=== PATIENT | female | born 1960 ===

== ENCOUNTER 2016-06-05 06:46 | Day surgery (SDC) | payer SELFPAY ==
[2016-06-05 07:36] VITALS: BMI 32.3
[2016-06-05 07:49] VITALS: TEMP 97.8
[2016-06-05] MEDS ORDERED: Lactated Ringer's 500 ML IV ONE (08:00)
[2016-06-05] MEDS ORDERED: Propofol 10 mg/ml Inj (20 ML) ONE ×2 (08:03→08:05)
[2016-06-05] MEDS ORDERED: Lidocaine Hydrochloride 5 ML INJ ONE (08:03)
[2016-06-05] MEDS ORDERED: Simethicone 40 mg/0.6 ml Liquid (30 ml) ONE (08:12)
[2016-06-05 08:54] VITALS: O2SAT 100
[2016-06-05 09:21] VITALS: BP 118/59; PULSE 66; RESP 16
== END 2016-06-05 10:05 | disposition home or self-care (01) ==
LOC: C.ENDO 06:46
PROVIDERS: ATTEND Internal Medicine Gastroenterology
DX: D12.4 Benign neoplasm of descending colon (principal); K63.89 Other specified diseases of intestine; K64.8 Other hemorrhoids
CPT/HCPCS: 45385; 88305; J2704; J7120

== ENCOUNTER 2017-07-18 12:32 | Emergency (ER) | payer OTHER ==
[2017-07-18 12:33] VITALS: BMI 38.4
[2017-07-18 12:41] VITALS: BP 147/85; PULSE 83; RESP 16; TEMP 98.3; O2SAT 98
--- NOTE | 2017-07-18 12:45 | C.PDOC ---
History Of Present Illness Patient reports left leg pain for the past two weeks. States that she fell three months ago however lately her left knee has been hurting more. She is able to bear weight but has pain when walking. Denies any new injury. No other symptoms. Time Seen by Provider: 07/18/17 12:39 Chief Complaint (Nursing): Lower Extremity Problem/Injury History Per: Patient History/Exam Limitations: no limitations Onset/Duration Of Symptoms: Other (Weeks) Current Symptoms Are (Timing): Still Present - Knee Description Of Injury: Other (States that she fell months ago) Past Medical History Vital Signs: Last Vital Signs Temp 98.3 F 07/18/17 12:38 Pulse 83 07/18/17 12:38 Resp 16 07/18/17 12:38 BP 147/85 07/18/17 12:38 Pulse Ox 98 07/18/17 13:23 - Medical History PMH: Colonic Polyps, HTN, Hypercholesterolemia, Hypothyroidism Denies: Chronic Kidney Disease Family History: States: Unknown Family Hx - Social History Hx Alcohol Use: No Hx Substance Use: No Review Of Systems Except As Marked, All Systems Reviewed And Found Negative. Constitutional: Negative for: Fever Cardiovascular: Negative for: Chest Pain Respiratory: Negative for: Cough, Shortness of Breath Gastrointestinal: Negative for: Nausea, Vomiting, Abdominal Pain Musculoskeletal: Positive for: Leg Pain Skin: Negative for: Rash, Bruising Neurological: Negative for: Weakness, Numbness Physical Exam - Physical Exam Appears: Well, Non-toxic, No Acute Distress Skin: Normal Color Head: Atraumatic Eye(s): bilateral: Normal Inspection Nose: Normal Oral Mucosa: Moist Cardiovascular: Rhythm Regular Respiratory: Normal Breath Sounds Gastrointestinal/Abdominal: Normal Exam, Soft Extremity: Normal ROM, Tenderness (L knee), No Pedal Edema, No Calf Tenderness, Capillary Refill (<2 seconds), No Deformity, No Swelling, Other (L knee no effusion, no swelling, no erythema, with minimal tenderness to anterior and posterior aspects. Negative anterior drawer sign.) Pulses: Left Dorsalis Pedis: Normal, Right Dorsalis Pedis: Normal Neurological/Psych: Oriented x3 Gait: Steady ED Course And Treatment O2 Sat by Pulse Oximetry: 98 - Other Rad L knee X-Ray: Read By Radiologist Interpretation: Accession No. : [id number]. Patient Name / ID : YING HSU / [id number]. Exam Date : 07/18/2017 12:52:03 ( Approved ). Study Comment : Sex / Age : F / 56Y. Creator : Randal Stone MD. Dictator : Randal Stone MD. Revenue Settlements Administrator : Supervisor [employer] : Randal Stone MD. Approver2 : Report Date : 07/18/2017 13:05:08. My Comment : . PROCEDURE: Left Knee Radiographs. HISTORY: Pain. COMPARISON: Knee radiographs dated 06/03/2015. FINDINGS: BONES: No acute fracture. JOINTS: Unremarkable. JOINT EFFUSION: None. OTHER FINDINGS: Quadriceps tendon enthesophyte. IMPRESSION: No demonstrated fracture or dislocation. Medical Decision Making Medical Decision Making: Patient given 600mg ibuprofen PO for pain. XRay of the left knee was done and was unremarkable. Ambulating without difficulty in the ED. Patient advised to follow up with her PMD. Take tylenol or motrin at home for pain. Return to the ED for any new or worsening symptoms. Disposition Counseled Patient/Family Regarding: Diagnosis, Need For Followup - Disposition Disposition: HOME/ ROUTINE Disposition Time: 13:18 Condition: GOOD Additional Instructions: Return to the ED for any new or worsening symptoms. Follow up with your primary care physician. Instructions: Knee Pain (DC) Forms: [facility] (Yi), Gen Discharge Inst Yi Print Language: FRENCH - Clinical Impression Clinical Impression: Left knee pain
--- NOTE | 2017-07-18 13:06 | RAD ---
PROCEDURE: Left Knee Radiographs. HISTORY: Pain. COMPARISON: Knee radiographs dated 06/03/2015. FINDINGS: BONES: No acute fracture. JOINTS: Unremarkable. JOINT EFFUSION: None. OTHER FINDINGS: Quadriceps tendon enthesophyte. IMPRESSION: No demonstrated fracture or dislocation.
== END 2017-07-18 13:58 | disposition home or self-care (01) ==
LOC: C.ER 12:32
DX: M25.562 Pain in left knee (principal); I10 Essential (primary) hypertension; E78.00 Pure hypercholesterolemia, unspecified; E03.9 Hypothyroidism, unspecified